=== PATIENT | female | born 1970 | race Caucasian/White ===

== ENCOUNTER 2023-02-20 00:39 | Emergency (ER) | payer OTHER ==
--- NOTE | 2023-02-20 01:32 | ERPHSYRPT ---
- History of Present Illness Historian: patient, EMS Exam Limitations: no limitations Patient Subjective Stated Complaint: nausea, vomiting, diarrhea x1 year Triage Nursing Assessment: Pt was brought in by ambulance, alert and oriented. Pt states, "I've had nausea, vomiting and diarrhea x1 year off and on, but denies having any of these symptoms today". Pt thinks she's dehydrated and states, "I need everything taken out of my belly, I don't know if I have hernia's or ulcers or what, but I want it all taken out". Abd lg, soft with active bs x4 quad. LBM 02/19/23. Physician History: 51 yo Wf w N/V/D x1yr brought into ER by ambulance service. Pt has mild abdominal cramping which is rated 7/10 on scale. She denies melena/hematochezia /hematemesis/dysuria/hematuria/chest pain. Timing/Duration: other (1year) Activities at Onset: rest Quality: cramping Abdominal Pain Onset Location: epigastric Pain Radiation: no radiation Severity of Pain-Max: moderate Severity of Pain-Current: moderate Modifying Factors: Improves With: nothing Associated Symptoms: diarrhea, nausea, vomiting Previous symptoms: same symptoms as today Allergies/Adverse Reactions: No Known Drug Allergies Allergy (Unverified 02/20/23 00:56) Home Medications: Cyclobenzaprine HCl 10 mg [Cyclobenzaprine 10 MG] 1 tab PO HS 02/20/23 [History] Loratadine 10 mg [Claritin 10 mg] 1 tab PO DAILY 02/20/23 [History] Lumateperone Tosylate [Caplyta] 42 mg PO DAILY 02/20/23 [History] Meclizine HCl 25 mg [Antivert 25 mg] 1 tab PO QID PRN PRN 02/20/23 [History] Meloxicam 7.5 mg PO DAILY 02/20/23 [History] Metoprolol Succinate 1 tab PO DAILY 02/20/23 [History] Ondansetron ODT 4 MG [Zofran Odt 4 mg] 1 tab PO TID PRN PRN 02/20/23 [History] Vortioxetine Hydrobromide [Brintellix] 10 mg PO DAILY 02/20/23 [History] hydrOXYzine HCL [Hydroxyzine HCl] 50 mg PO BID 02/20/23 [History] Hx Tetanus, Diphtheria Vaccination/Date Given: Yes Hx Influenza Vaccination/Date Given: Yes Hx Pneumococcal Vaccination/Date Given: No Travel Risk - International Travel Have you traveled outside of the country in past 3 weeks: No - Coronavirus Screening Symptoms: Cough: New Onset, Vomiting/Diarrhea, Headaches/Body Aches/Fatigue Close contact with a COVID-19 positive Pt in past 14-21 Days: No - Vaccine Status Have you recieved a Covid-19 vaccination: Yes 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 - Review of Systems Constitutional: No Symptoms Eyes: No Symptoms Ears, Nose, & Throat: No Symptoms Respiratory: No Symptoms Cardiac: No Symptoms Abdominal/Gastrointestinal: No Symptoms, Abdominal Pain, Nausea, Vomiting, Diarrhea Genitourinary Symptoms: No Symptoms Musculoskeletal: No Symptoms Skin: No Symptoms Neurological: No Symptoms Psychological: No Symptoms Endocrine: No Symptoms Hematologic/Lymphatic: No Symptoms Immunological/Allergic: No Symptoms - Past Medical History Pertinent Past Medical History: Yes Neurological History: Migraines ENT History: No Pertinent History Cardiac History: Hypertension Respiratory History: Bronchitis Endocrine Medical History: No Pertinent History Musculoskeletal History: Arthritis, Fractures GI Medical History: GERD, Gallbladder Disease History: No Pertinent History Psycho-Social History: Anxiety, Depression Female Reproductive Disorders: No Pertinent History - Past Surgical History Past Surgical History: Yes Neuro Surgical History: No Pertinent History Cardiac: No Pertinent History Respiratory: No Pertinent History Gastrointestinal: Cholecystectomy Genitourinary: No Pertinent History Musculoskeletal: Orthopedic Surgery Female Surgical History: No Pertinent History Other Surgical History: bilat hips - Social History Smoking Status: Current every day smoker How long have you smoked: 20 Exposure to second hand smoke: Yes Drug Use: none Patient Lives Alone: No - Nursing Vital Signs Nursing Vital Signs: Initial Vital Signs Temperature 97.6 F 02/20/23 00:44 Pulse Rate 103 H 02/20/23 00:44 Respiratory Rate 18 02/20/23 00:44 Blood Pressure 137/97 02/20/23 00:44 O2 Sat by Pulse Oximetry 99 02/20/23 00:44 Pain Scale Pain Intensity 0 Tachy/Hypertensive - Physical Exam General Appearance: no apparent distress Eye Exam: PERRL/EOMI, eyes nml inspection Ears, Nose, Throat Exam: normal ENT inspection, TMs normal, pharynx normal, moist mucous membranes Neck Exam: normal inspection, non-tender, supple, full range of motion, No meningismus, No mass, No Brudzinski, No Kernig's Respiratory Exam: normal breath sounds, lungs clear, airway intact, No respiratory distress Cardiovascular Exam: regular rate/rhythm, normal heart sounds, normal peripheral pulses, capillary refill <2 sec, No murmur Gastrointestinal/Abdomen Exam: soft, normal bowel sounds, tenderness (Mild periumbilical TTP wo guarding or rebound) Back Exam: normal inspection, normal range of motion, No CVA tenderness, No vertebral tenderness Extremity Exam: normal inspection, normal range of motion Neurologic Exam: alert, oriented x 3, cooperative, 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, normal mood/affect, nml cerebellar function, nml station & gait, sensation nml Skin Exam: normal color, warm, dry Lymphatic Exam: No adenopathy SpO2 Interpretation: normal SpO2: 99 O2 Delivery: Room Air - Course Nursing assessment & vital signs reviewed: Yes - CT Exams Abdomen/Pelvis CT Interpretation: Tele-radiologist Report (CT abdomen-pelvis wo contrast neg per [facility]) Ordered Tests: Active Orders 24 hr Category Date Time Status ABDOMEN AND PELVIS W/0 CONTRAS [CT] Stat Exams 02/20/23 02:34 Taken AMYLASE Stat Lab 02/20/23 01:35 Completed CBC W DIFF Stat Lab 02/20/23 01:35 Completed CMP Stat Lab 02/20/23 01:35 Completed CULTURE,URINE Stat Lab 02/20/23 02:00 Received LIPASE Stat Lab 02/20/23 01:35 Completed TROPONIN Q4H Lab 02/20/23 01:35 Completed UA W/RFX UR CULTURE Stat Lab 02/20/23 02:00 Completed Medication Summary Discontinued Medications Generic Name Dose Route Start Last Admin Trade Name Freq PRN Reason Stop Dose Admin Ceftriaxone Sodium 1,000 mg 02/20/23 02:31 02/20/23 02:43 Ceftriaxone Sodium 1000 Mg Inj Vial IM 02/20/23 02:32 1,000 mg STAT ONE Administration Ceftriaxone Sodium Confirm 02/20/23 02:35 Ceftriaxone Sodium 1000 Mg Inj Vial Administered 02/20/23 02:36 Dose 1,000 mg .ROUTE .STK-MED ONE Lidocaine HCl Confirm 02/20/23 02:36 Lidocaine Hcl 1% 20 Ml Mdv 20 Ml Ml Administered 02/20/23 02:37 Dose 2 ml .ROUTE .STK-MED ONE Potassium Chloride 40 meq 02/20/23 02:21 02/20/23 02:23 Potassium Chloride Tab 10 Meq Tab PO 02/20/23 02:22 40 meq STAT ONE Administration Potassium Chloride Confirm 02/20/23 02:23 Potassium Chloride Tab 10 Meq Tab Administered 02/20/23 02:24 Dose 40 meq PO .STK-MED ONE Lab/Rad Data: Laboratory Result Diagrams 02/20/23 01:35 02/20/23 01:35 Laboratory Results 02/20/23 02/20/23 02/20/23 Range/Units 02:00 01:35 01:35 WBC (4.0-10.5) x10^3/uL RBC (4.1-5.4) x10^6/uL Hgb (12.0-16.0) g/dL Hct (35-47) % MCV (78-100) fL MCH (26-32) pg MCHC (32-36) g/dL RDW (11.5-14.0) % Plt Count (150-450) x10^3/uL MPV (7.5-11.0) fL Gran % (36.0-66.0) % Immature Gran % (Auto) (0.00-0.4) % Nucleat RBC Rel Count (0.00-0.1) % Eos # (Auto) (0-0.5) x10^3/uL Immature Gran # (Auto) (0.00-0.03) x10^3u/L Absolute Lymphs (auto) (1.0-4.6) x10^3/uL Absolute Monos (auto) (0.0-1.3) x10^3/uL Absolute Nucleated RBC (0.00-0.01) x10^3u/L Lymphocytes % (24.0-44.0) % Monocytes % (0.0-12.0) % Eosinophils % (0.00-5.0) % Basophils % (0.0-0.4) % Absolute Granulocytes (1.4-6.9) x10^3/uL Basophils # (0-0.4) x10^3/uL Sodium 129 L (137-145) mmol/L Potassium 2.7 L* (3.5-5.1) mmol/L Chloride 78 L (98-107) mmol/L Carbon Dioxide 38 H (22-30) mmol/L Anion Gap 15.7 H (5-15) MEQ/L BUN 14 (7-17) mg/dL Creatinine 1.06 H (0.52-1.04) mg/dL Estimated GFR 58.1 ML/MIN Glucose 118 H (74-106) mg/dL Calcium 9.3 (8.4-10.2) mg/dL Total Bilirubin 0.60 (0.2-1.3) mg/dL AST 33 (14-36) U/L ALT 37 H (0-35) U/L Alkaline Phosphatase 122 (38-126) U/L Troponin I < 0.012 (0.000-0.034) ng/mL Serum Total Protein 7.8 (6.3-8.2) g/dL Albumin 4.4 (3.5-5.0) g/dL Amylase 85 (30-110) U/L Lipase 80 (23-300) U/L Urine Color Yellow (Yellow) Urine Appearance Clear (Clear) Urine pH 6.5 (4.6-8.0) Ur Specific [place] <=1.005 (1.005-1.030) Urine Protein Negative (Negative) Urine Glucose (UA) Negative (Negative) mg/dL Urine Ketones Negative (Negative) Urine Blood Negative (Negative) Urine Nitrite Negative (Negative) Urine Bilirubin Negative (Negative) Urine Urobilinogen 0.2 (0.2) mg/dL Ur Leukocyte Esterase Large A (Negative) U Hyaline Cast (Auto) NONE SEEN (0-2) /LPF Urine Microscopic RBC 0-2 (0-5) /HPF Urine Microscopic WBC 21-50 A (0-5) /HPF Ur Epithelial Cells Few (None Seen) /HPF Urine Bacteria Rare A (None Seen) /HPF Urine Culture Reflexed YES (NO) 02/20/23 Range/Units 01:35 WBC 13.9 H (4.0-10.5) x10^3/uL RBC 5.34 (4.1-5.4) x10^6/uL Hgb 15.4 (12.0-16.0) g/dL Hct 44.7 (35-47) % MCV 83.7 (78-100) fL MCH 28.8 (26-32) pg MCHC 34.5 (32-36) g/dL RDW 11.9 (11.5-14.0) % Plt Count 431 (150-450) x10^3/uL MPV 10.5 (7.5-11.0) fL Gran % 59.0 (36.0-66.0) % Immature Gran % (Auto) 0.6 H (0.00-0.4) % Nucleat RBC Rel Count 0.0 (0.00-0.1) % Eos # (Auto) 0.20 (0-0.5) x10^3/uL Immature Gran # (Auto) 0.08 H (0.00-0.03) x10^3u/L Absolute Lymphs (auto) 4.40 (1.0-4.6) x10^3/uL Absolute Monos (auto) 0.97 (0.0-1.3) x10^3/uL Absolute Nucleated RBC 0.00 (0.00-0.01) x10^3u/L Lymphocytes % 31.6 (24.0-44.0) % Monocytes % 7.0 (0.0-12.0) % Eosinophils % 1.4 (0.00-5.0) % Basophils % 0.4 (0.0-0.4) % Absolute Granulocytes 8.20 H (1.4-6.9) x10^3/uL Basophils # 0.06 (0-0.4) x10^3/uL Sodium (137-145) mmol/L Potassium (3.5-5.1) mmol/L Chloride (98-107) mmol/L Carbon Dioxide (22-30) mmol/L Anion Gap (5-15) MEQ/L BUN (7-17) mg/dL Creatinine (0.52-1.04) mg/dL Estimated GFR ML/MIN Glucose (74-106) mg/dL Calcium (8.4-10.2) mg/dL Total Bilirubin (0.2-1.3) mg/dL AST (14-36) U/L ALT (0-35) U/L Alkaline Phosphatase (38-126) U/L Troponin I (0.000-0.034) ng/mL Serum Total Protein (6.3-8.2) g/dL Albumin (3.5-5.0) g/dL Amylase (30-110) U/L Lipase (23-300) U/L Urine Color (Yellow) Urine Appearance (Clear) Urine pH (4.6-8.0) Ur Specific [place] (1.005-1.030) Urine Protein (Negative) Urine Glucose (UA) (Negative) mg/dL Urine Ketones (Negative) Urine Blood (Negative) Urine Nitrite (Negative) Urine Bilirubin (Negative) Urine Urobilinogen (0.2) mg/dL Ur Leukocyte Esterase (Negative) U Hyaline Cast (Auto) (0-2) /LPF Urine Microscopic RBC (0-5) /HPF Urine Microscopic WBC (0-5) /HPF Ur Epithelial Cells (None Seen) /HPF Urine Bacteria (None Seen) /HPF Urine Culture Reflexed (NO) - Progress Progress: improved Progress Note: 02/20/23 02:17 External records reviewed from [facility] on 09/02/[address] ab-pelvis wo contrast wo acute findings Nursing note and vital signs reviewed No food or housing insecurities noted 02/20/23 03:49 1gm IM Rocephin KCl 40 Meq po x1 All lab results reviewed and shared w pt 02/20/23 07:02 Counseled pt/family regarding: lab results, diagnosis, need for follow-up, rad results - Departure Departure Disposition: Home Clinical Impression: UTI (urinary tract infection), Hypokalemia, Chronic abdominal pain Condition: Stable Critical Care Time: No Referrals: FEDE LI PA [Primary Care Provider] - Follow up/PCP as d irected Instructions: Urinary Tract Infection, Adult (DC), Severe Abdominal Pain, Adult (DC), Nausea and Vomiting, Adult (DC) Additional Instructions: Follow up with your family MD in 1-2 days Return to ER for increasing pain or temperature greater than 100.5 Start macrobid twice a day for urinary tract infection Potassium twice a day for 1 week Prescriptions: Nitrofurantoin Monohyd/M-Cryst [Macrobid 100 mg Capsule] 100 mg PO BID 5 Days #10 cap Potassium Chloride 20 meq PO BID #14 tablet
[2023-02-20 01:44] LABS: BASOPHIL % 0.4 % (0.0-0.4); Basophil (Absolute #) 0.06 x10^3/uL (0-0.4); Eosinophil % 1.4 % (0.00-5.0); Hematocrit 44.7 % (35-47); Hemoglobin 15.4 g/dL (12.0-16.0); IMMATURE GRAN # 0.08 x10^3u/L (0.00-0.03); IMMATURE GRAN % 0.6 % (0.00-0.4); Lymphocytes % 31.6 % (24.0-44.0); Mean Cell Volume 83.7 fL (78-100); Mean Corpuscular Hemoglobin 28.8 pg (26-32); Mean Corpuscular Hgb Concent. 34.5 g/dL (32-36); Mean Platelet Volume 10.5 fL (7.5-11.0); Monocyte (Absolute #) 0.97 x10^3/uL (0.0-1.3); Platelet Count 431 x10^3/uL (150-450); Red Blood Count 5.34 x10^6/uL (4.1-5.4); Red Cell Distribution Width 11.9 % (11.5-14.0); White Blood Count 13.9 x10^3/uL (4.0-10.5)
[2023-02-20 02:00] LABS: ALBUMIN 4.4 g/dL (3.5-5.0); BILIRUBIN,TOTAL 0.6 mg/dL (0.2-1.3); Calcium 9.3 mg/dL (8.4-10.2); Creatinine 1 1.06 mg/dL (0.52-1.04); EST GLOMERULAR FILTRATION RATE 58.1 ML/MIN; Total Protein 7.8 g/dL (6.3-8.2)
[2023-02-20 02:14] LABS: Appearance Clear (Clear); Bacteria Rare /HPF (None Seen); Bilirubin Negative (Negative); Blood Negative (Negative); Epithelial Cells Few /HPF (None Seen); Glucose, Urine Negative (Negative); Hyaline Casts NONE SEEN /LPF (0-2); Ketones Negative (Negative); Leukocyte Esterase Large (Negative); Nitrite Negative (Negative); Ph 6.5 (4.6-8.0); Protein,Urine Dip Negative (Negative); RBC 0-2 /HPF (0-5); Specific Gravity <=1.005 (1.005-1.030); Urobilinogen 0.2 mg/dL (0.2); WBC 21-50 /HPF (0-5)
[2023-02-20 02:21] LABS: ADD URINE CULTURE? YES (NO)
[2023-02-20 02:21] LABS: Potassium 2.7 mmol/L (3.5-5.1)
[2023-02-20] MEDS ORDERED: Klor Con PO ONE ×2 (02:21→02:23)
[2023-02-20] MEDS ORDERED: Rocephin 1000 MG INJ IM ONE (02:31)
[2023-02-20] MEDS ORDERED: Rocephin 1000 MG INJ ONE (02:35)
[2023-02-20] MEDS ORDERED: XYLOCAINE 1% HCL 20 ML MDV ONE (02:36)
[2023-02-20 02:59] LABS: ANION GAP 15.7 MEQ/L (5-15)
[2023-02-20 03:51] VITALS: BP 107/68; PULSE 107
[2023-02-20 07:03] VITALS: O2SAT 99
--- NOTE | 2023-02-20 09:03 | XRAY ---
Indication: Abdomen pain, nausea, vomiting, diarrhea. Multiple contiguous axial images obtained through the abdomen and pelvis without contrast. Comparison: None Lung bases clear. Heart is not enlarged. Noncontrasted stomach and bowel loops appear nonobstructed with incidental 2 cm descending duodenal diverticulum. Normal appendix. Minimal sigmoid diverticulosis without diverticulitis. Previous cholecystectomy. No free fluid/air. Remaining liver, pancreas, spleen, adrenal glands, kidneys, ureters, bladder, uterus, and aorta are unremarkable for noncontrast exam. Osseous structures intact with minimal degenerative changes throughout the spine. Impression: 1. Duodenal diverticulum, sigmoid diverticulosis, and degenerative spondylosis. 2. Remaining CT abdomen/pelvis without contrast exam is negative. Comment: Preliminary interpretation made by [facility]. No critical discrepancy.
== END 2023-02-20 04:03 | disposition home or self-care (01) ==
LOC: ED 00:39
DX: N39.0 Urinary tract infection, site not specified (principal); E87.6 Hypokalemia; G89.29 Other chronic pain; R10.9 Unspecified abdominal pain
CPT/HCPCS: 36415; 74176; 80053; 81001; 82150; 83690; 84484; 85025; 87086; 96372; 99283; J0696; A9270-GY